=== PATIENT | female | born 2000 | race Caucasian/White ===

== ENCOUNTER 2021-12-20 15:27 | Emergency (ER) | payer BC ==
[~2021-12-20] VITALS: Ht 157.5 cm; Wt 109.1 kg
[2021-12-20 16:05] VITALS: TEMP 98
[2021-12-20 16:56] LABS: COLLECTION METHOD CLEAN CATCH
[2021-12-20 16:59] LABS: BASO # 0.1 K/mm3 (0.0-0.2); BASO % 0.6 % (0.0-2.0); EOS # 0.1 K/mm3 (0.0-0.7); EOS % 0.7 % (0.0-4.0); GRAN # 5.1 K/mm3 (1.4-6.5); GRAN % 61.5 % (42.2-75.2); HEMOGLOBIN 12.9 g/dl (12.5-16.0); LYMPH # 2.6 K/mm3 (1.2-3.4); LYMPH % 31.1 % (20.0-51.0); MEAN CELL VOLUME 82 fl (80.0-100.0); MEAN CORPUSCULAR HEMOGLOBIN 27 pg (27-31); MEAN CORPUSCULAR HGB CONC 32 g/dl (33.0-37.0); MEAN PLATELET VOLUME 8.8 fl (7.4-10.4); MONO # 0.5 K/mm3 (0.1-0.6); PLATELET COUNT 325 K/mm3 (130-400); RED BLOOD COUNT 4.87 M/mm3 (4.10-5.30); REDCELL DISTRIBUTION WIDTH-CV 14.3 % (11.5-14.5)
[2021-12-20 17:13] LABS: ALBUMIN 4.1 gm/dL (3.5-5.0); BILIRUBIN,TOTAL 0.3 mg/dL (0.2-1.2); CALCIUM 9.6 mg/dL (8.4-10.2); CREATININE, serum 0.72 mg/dL (0.57-1.11); POTASSIUM 4.1 mmol/L (3.5-4.5); TOTAL PROTEIN 7.4 gm/dL (6.2-8.1)
[2021-12-20 17:20] LABS: PH 6 (5-8); URINE APPEARANCE Hazy (CLEAR/HAZY); URINE COLOR Yellow (YELLOW); URINE GLUCOSE Negative (NEGATIVE); URINE KETONE Negative (NEGATIVE); URINE PROTEIN(semi-quant) Negative (NEGATIVE)
[2021-12-20 17:21] LABS: MUCOUS Present (NOT PRESENT); SQUAMOUS EPITHELIAL 0-2 /hpf (0-10); URINE BACTERIA None Seen /hpf (NONE SEEN); URINE BLOOD Negative (NEGATIVE); URINE NITRATE Negative (NEGATIVE); URINE RBC 0-2 /hpf (0-2); URINE UROBILINOGEN Negative (NEGATIVE)
[2021-12-20] MEDS ORDERED: MOBIC15 MG PO (17:25)
[2021-12-20] MEDS ORDERED: WELLBUTRIN XL150 MG PO (17:25)
[2021-12-20 19:01] VITALS: BP 132/95; PULSE 86
== END 2021-12-20 19:03 | disposition home or self-care (01) ==
LOC: COL.ER 15:27
PROVIDERS: Emergency Medicine
DX: R10.31 Right lower quadrant pain (principal); R10.2 Pelvic and perineal pain; Z90.49 Acquired absence of other specified parts of digestive tract
CPT/HCPCS: J1885; J2270; J2765; Q9967